=== PATIENT | female | born 1985 | race Caucasian/White ===

== ENCOUNTER 2017-07-17 13:15 | Outpatient (RCR) | payer BC | END 2017-09-13 | disposition home or self-care (01) | LOC: WSPT | DX: M54.5 Low back pain (principal) ==

== ENCOUNTER → 2018-10-21 | Outpatient (CLI) | payer BC | LOC: MC.RAD 14:15 | DX: N63.14 Unspecified lump in the right breast, lower inner quadrant (principal) ==

== ENCOUNTER 2021-10-26 20:05 | Emergency (ER) | payer BC ==
[~2021-10-26] VITALS: Ht 175.3 cm; Wt 71.4 kg
[2021-10-26 20:12] VITALS: TEMP 98.2
[2021-10-26 20:57] LABS: BASO % 0.5 % (0.0-2.0); EOS # 0.1 K/mm3 (0.0-0.7); EOS % 1.9 % (0.0-4.0); GRAN # 2.7 K/mm3 (1.4-6.5); GRAN % 44.8 % (42.2-75.2); HEMOGLOBIN 12.4 g/dl (12.5-16.0); LYMPH # 2.5 K/mm3 (1.2-3.4); LYMPH % 41.6 % (20.0-51.0); MEAN CELL VOLUME 83 fl (80.0-100.0); MEAN CORPUSCULAR HEMOGLOBIN 28 pg (27-31); MEAN CORPUSCULAR HGB CONC 34 g/dl (33.0-37.0); MEAN PLATELET VOLUME 8.8 fl (7.4-10.4); MONO # 0.7 K/mm3 (0.1-0.6); PLATELET COUNT 427 K/mm3 (130-400); RED BLOOD COUNT 4.38 M/mm3 (4.10-5.30); REDCELL DISTRIBUTION WIDTH-CV 12.4 % (11.5-14.5)
[2021-10-26 20:59] LABS: HEMATOCRIT 36.4 % (37.0-47.0)
[2021-10-26 21:14] LABS: ALANINE AMINOTRANSFERASE 11 U/L (0-55); ALKALINE PHOSPHATASE 66 U/L (40-150); ANION GAP 11 mmol/L (7-16); AST,SGOT 12 U/L (5-34); BILIRUBIN,TOTAL 0.2 mg/dL (0.2-1.2); BLOOD UREA NITROGEN 9 mg/dL (7-19); CALCIUM 8.9 mg/dL (8.4-10.2); CARBON DIOXIDE 21 mmol/L (22-29); CHLORIDE 107 mmol/L (98-107); CREATININE, serum 0.67 mg/dL (0.57-1.11); GLUCOSE 91 mg/dL (70-99); POTASSIUM 3.8 mmol/L (3.5-4.5); SODIUM 139 mmol/L (136-145); TOTAL PROTEIN 7.4 gm/dL (6.2-8.1)
[2021-10-26 21:27] LABS: TROPONIN-I < 0.010 ng/mL (0.00-0.033)
[2021-10-26 22:12] VITALS: BP 130/80; PULSE 77
== END 2021-10-26 22:14 | disposition home or self-care (01) ==
LOC: COL.ER 20:05
PROVIDERS: Emergency Medicine
DX: R07.89 Other chest pain (principal); Z28.311 Partially vaccinated for COVID-19
CPT/HCPCS: J7030

== ENCOUNTER 2022-03-27 08:29 | Outpatient (CLI) | payer BC ==
[~2022-03-27] VITALS: Ht 175.3 cm; Wt 75.2 kg
[2022-03-27] MEDS ORDERED: DESYREL 50MG50 MG PO (09:09)
[2022-03-27] MEDS ORDERED: CYMBALTA 60MG60 MG PO (09:09)
[2022-03-27] MEDS ORDERED: YAZ 28 3 MG-0.01 TAB PO (09:11)
[2022-03-27] MEDS ORDERED: ADDERALL XR30 MG PO (09:12)
[2022-03-27] MEDS ORDERED: ADDERALL20 MG PO (09:14)
[2022-03-27] MEDS ORDERED: PROAMATINE10 MG PO (09:29)
[2022-03-27 09:30] VITALS: BP 130/78; PULSE 98; TEMP 98.5
[2022-03-27 13:00] VITALS: BP 115/69; PULSE 84
[2022-03-27] MEDS ORDERED: TOPROL XL 25MG25 MG PO (13:23)
[2022-03-27 13:30] VITALS: BP 122/82; PULSE 84
--- NOTE | 2022-03-27 13:35 | NUR ---
Pt is ready for departure. I reviewed dc/fu and rx instructions with pt who verbalized understanding. Pt is up and steady on her feet in rm 11, however, pt was escorted to exit via wheelchair.
== END 2022-03-27 13:35 | disposition home or self-care (01) ==
LOC: COL.CAR 08:29
DX: R42 Dizziness and giddiness (principal)